=== PATIENT | male | born 1980 | race Two or more races ===

== ENCOUNTER 2019-07-17 15:45 | Emergency (ER) | payer SELFPAY ==
[~2019-07-17] VITALS: Ht 172.7 cm; Wt 75.0 kg
[2019-07-18 09:43] VITALS: BP 118/78
== END 2019-07-18 09:44 | disposition home or self-care (01) ==
LOC: ER 15:45 → EDBD 15:45 → ER 07-18 09:44
DX: F10.129 Alcohol abuse with intoxication, unspecified (principal); Y90.9 Presence of alcohol in blood, level not specified; S00.83XA Contusion of other part of head, initial encounter; X58.XXXA Exposure to other specified factors, initial encounter; M54.9 Dorsalgia, unspecified; Y93.89 Activity, other specified; Y92.480 Sidewalk as the place of occurrence of the external cause
CPT/HCPCS: 72131; 99284